=== PATIENT | male | born 2000 | race African-American/Black ===

== ENCOUNTER 2019-11-24 14:55 | Emergency (ER) | payer OTHER ==
[2019-11-24] MEDS ORDERED: Acetaminophen 500 MG TAB ONE (15:32)
[2019-11-24 15:39] LABS: #Lymphocytes 0.9 thou/uL (1.20-3.40); #Monocytes 0.7 thou/uL (0.11-0.59); #Neutrophils 6.7 thou/uL (1.40-6.50); %Basophils 0.1 % (0.0-1.0); %Eosinophils 0.4 % (0.0-10.0); %Lymphocytes 11.2 % (21.0-51.0); %Monocytes 8.2 % (0.0-10.0); %Neutrophils 80.1 % (42.0-75.0); Hemoglobin 14.5 g/dL (14.0-18.0); Mean Corpuscular HGB CONC 32.9 g/dL (32.0-36.0); Mean Corpuscular Hemoglobin 30.6 pg (27.0-31.0); Mean Platelet Volume 8.3 fL (7.4-10.4); Platelet Count 190 thou/uL (130-400); RBC Distribution Width 11.7 % (11.5-14.5); Red Blood Cell (RBC) Count 4.75 mill/uL (4.70-6.10); White Blood Cell (WBC) Count 8.3 thou/uL (4.8-10.8)
--- NOTE | 2019-11-24 15:54 | RAD ---
SINGLE VIEW OF THE CHEST: 11/24/19 COMPARISON: None. HISTORY: Fever since this morning. FINDINGS: Single view of the chest shows a normal sized cardiomediastinal silhouette. There is no evidence of c onsolidation, mass, or pleural effusion. There is moderate scoliotic curvature of the spine. IMPRESSION: No evidence of acute cardiopulmonary disease. POS: EAA
[2019-11-24 15:56] LABS: ALT (SGPT) 8 U/L (8-55); AST (SGOT) 15 U/L (5-34); Albumin 4.1 g/dL (3.5-5.0); Alkaline Phosphatase 88 U/L (40-110); Anion Gap 10 mmol/L (10-20); BUN (Urea Nitrogen) 9 mg/dL (8.9-20.6); Bilirubin, Total 0.7 mg/dL (0.2-1.2); Calc. Creatinine Clearance 0 mL/min (70-130); Calcium 9.3 mg/dL (7.8-10.44); Carbon Dioxide 26 mmol/L (22-29); Chloride 102 mmol/L (98-107); Estimated GFR-MDRD Greater than 90; Globulin 3.4 g/dL (2.4-3.5); Glucose 100 mg/dL (70-105); Potassium 3.3 mmol/L (3.5-5.1); Protein, Total 7.5 g/dL (6.0-8.3); Sodium 135 mmol/L (136-145)
[2019-11-24 16:08] LABS: HIV (1/2) Antibody/Antigen Non-Reactive (NonReactive)
[2019-11-24 18:13] LABS: Bilirubin Negative (Negative); Blood, Urine Negative (Negative); Clarity Clear (Clear); Glucose, Urine (Dipstick) Normal (Negative); Leukocyte 75 Leu/uL (Negative); Nitrite Negative (Negative); Protein, Urine (Dipstick) 10 mg/dL (Neg-Trace); RBC/HPF 0-3 HPF (0-3); Squamous Epithelial 0-3 HPF (0-3); Urobilinogen Normal mg/dL (Less than 2)
[2019-11-24 18:15] LABS: Bacteria/HPF 1+ HPF (None Seen)
[2019-11-24] MEDS ORDERED: diphenhydrAMINE 50 MG/ML VIAL ONE (18:16)
[2019-11-24] MEDS ORDERED: Azithromycin 500 MG VIAL ONE (18:26)
[2019-11-24] MEDS ORDERED: cefTRIAXone\\ROCEPHIN 1 GM VIAL ONE (18:26)
[2019-11-24] MEDS ORDERED: Prochlorperazine 10 MG/2 ML VIAL IVP SCH (18:30)
[2019-11-24] MEDS ORDERED: Azithromycin 250 MG TAB ONE (18:30)
[2019-11-24] MEDS ORDERED: Sodium Chloride 0.9% 100 ML ONE (18:30)
[2019-11-25 11:10] LABS: SARS-CoV-2 MS2 Positive; SARS-CoV-2 N Gene Negative; SARS-CoV-2 S Gene Negative; SARS-CoV-2 orf1ab Negative
[2019-11-27 17:17] LABS: Chlam.trachomatis by PCR,Urine DETECTED (NotDetected)
== END 2019-11-24 20:00 | disposition home or self-care (01) ==
LOC: ERS 14:55
DX: N39.0 Urinary tract infection, site not specified (principal); Z20.828 Contact with and (suspected) exposure to other viral communicable diseases
CPT/HCPCS: 71045; 80053; 81003; 81015; 83605; 85025; 87040; 87389; 87491; 87591; 87635; 93005; 96365; 96375; J0456; J0696; J0780; J1200; J3490; U0003

== ENCOUNTER 2019-11-25 03:19 | Emergency (ER) | payer SELFPAY ==
[2019-11-25 03:55] LABS: #Lymphocytes 0.9 thou/uL (1.20-3.40); #Monocytes 1.2 thou/uL (0.11-0.59); %Basophils 0.1 % (0.0-1.0); %Eosinophils 0.1 % (0.0-10.0); %Lymphocytes 7.9 % (21.0-51.0); %Monocytes 10.4 % (0.0-10.0); %Neutrophils 81.5 % (42.0-75.0); Hemoglobin 12.8 g/dL (14.0-18.0); Mean Corpuscular HGB CONC 32.8 g/dL (32.0-36.0); Mean Corpuscular Hemoglobin 30.8 pg (27.0-31.0); Mean Corpuscular Volume 94.1 fL (78.0-98.0); Mean Platelet Volume 8.7 fL (7.4-10.4); Platelet Count 165 thou/uL (130-400); RBC Distribution Width 11.8 % (11.5-14.5); Red Blood Cell (RBC) Count 4.13 mill/uL (4.70-6.10)
== END 2019-11-25 04:47 | disposition home or self-care (01) ==
LOC: ERS 03:19
DX: N39.0 Urinary tract infection, site not specified (principal)
CPT/HCPCS: 83605; 85025; 99283

== ENCOUNTER 2019-11-27 18:03 | Emergency (ER) | payer SELFPAY ==
[2019-11-27] MEDS ORDERED: Ketorolac Tromethamine 30 MG/ML VIAL ONE (18:30)
[2019-11-27] MEDS ORDERED: Bicillin LA 2.4 MILL.UNITS/4 ML SYRINGE ONE (18:30)
[2019-11-27] MEDS ORDERED: Acetaminophen 500 MG TAB ONE (18:30)
[2019-11-27] MEDS ORDERED: Dexamethasone 4 mg/ml Vial ONE (18:30)
[2019-11-27 18:46] LABS: #Lymphocytes 1.4 thou/uL (1.20-3.40); #Monocytes 1.2 thou/uL (0.11-0.59); #Neutrophils 6.8 thou/uL (1.40-6.50); %Basophils 0.3 % (0.0-1.0); %Lymphocytes 14.6 % (21.0-51.0); %Monocytes 12.6 % (0.0-10.0); %Neutrophils 72.5 % (42.0-75.0); Hemoglobin 15.2 g/dL (14.0-18.0); Mean Corpuscular HGB CONC 32.7 g/dL (32.0-36.0); Mean Corpuscular Hemoglobin 30.6 pg (27.0-31.0); Mean Corpuscular Volume 93.8 fL (78.0-98.0); Mean Platelet Volume 8.5 fL (7.4-10.4); Platelet Count 178 thou/uL (130-400); RBC Distribution Width 12.1 % (11.5-14.5); Red Blood Cell (RBC) Count 4.94 mill/uL (4.70-6.10); White Blood Cell (WBC) Count 9.4 thou/uL (4.8-10.8)
[2019-11-27 19:03] LABS: Anion Gap 18 mmol/L (10-20); BUN (Urea Nitrogen) 10 mg/dL (8.9-20.6); Calc. Creatinine Clearance 0 mL/min (70-130); Calcium 9.4 mg/dL (7.8-10.44); Carbon Dioxide 25 mmol/L (22-29); Chloride 97 mmol/L (98-107); Estimated GFR-MDRD 90; Glucose 87 mg/dL (70-105); Potassium 3.4 mmol/L (3.5-5.1); Sodium 137 mmol/L (136-145)
--- NOTE | 2019-11-27 20:12 | RAD ---
EXAM: CHEST ONE VIEW: History: Cough Comparison: 11-24-2019 FINDINGS: Marked S-shaped scoliosis. Heart size is within normal limits. The lungs are clear. IMPRESSION: No acute intrathoracic disease. Stable scoliosis. POS: RRE
== END 2019-11-27 20:25 | disposition home or self-care (01) ==
LOC: ERS 18:03
DX: J03.90 Acute tonsillitis, unspecified (principal); M41.9 Scoliosis, unspecified
CPT/HCPCS: 71045; 80048; 83605; 85025; 87081; 87430; 87804; 96361; 96372; 96374; 96375; J0561; J1100; J1885

== ENCOUNTER 2019-12-31 12:04 | Emergency (ER) | payer OTHER, SELFPAY | END 2019-12-31 13:17 | disposition home or self-care (01) | LOC: ERS 12:04 | DX: Z20.828 Contact with and (suspected) exposure to other viral communicable diseases (principal) | CPT/HCPCS: 87635; 99283; U0003 ==

== ENCOUNTER 2021-01-13 10:13 | Emergency (ER) | payer OTHER ==
[2021-01-13] MEDS ORDERED: traMADol HCl 50 MG TAB ONE (11:09)
== END 2021-01-13 11:08 | disposition home or self-care (01) ==
LOC: ERS 10:13
DX: K08.89 Other specified disorders of teeth and supporting structures (principal); M41.9 Scoliosis, unspecified
CPT/HCPCS: 99283